=== PATIENT | male | born 1975 | race Caucasian/White ===

== ENCOUNTER 2016-09-19 12:07 | Emergency (ER) | payer OTHER ==
[~2016-09-19] VITALS: Ht 170.2 cm; Wt 77.0 kg
[~2016-09-19 12:07] MED LIST: DEXT15TA PO; LASI20TA PO; MORP1INJ45 PO; OXYC40TA20 PO; POTA-243 PO; TRAZ100T50 PO; XANA2TAB2 PO
[2016-09-19 12:11] VITALS: BP 137/69; PULSE 94; RESP 15; TEMP 98.7; O2SAT 98
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
[2016-09-19] MEDS ORDERED: CYCL5TAB PO (14:12)
[2016-09-19] MEDS ORDERED: IBUP-232 PO (14:12)
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
== END 2016-09-19 14:55 | disposition home or self-care (01) ==
LOC: PHEFT 12:07
DX: S16.1XXA Strain of muscle, fascia and tendon at neck level, initial encounter (principal); S20.219A Contusion of unspecified front wall of thorax, initial encounter; M79.7 Fibromyalgia; F17.210 Nicotine dependence, cigarettes, uncomplicated; V49.49XA Driver injured in collision with other motor vehicles in traffic accident, initial encounter; Y92.410 Unspecified street and highway as the place of occurrence of the external cause
CPT/HCPCS: 71111; 72125; 99284

== ENCOUNTER 2016-11-05 15:02 | Emergency (ER) | payer SELFPAY ==
[~2016-11-05] VITALS: Ht 172.7 cm; Wt 77.0 kg
[~2016-11-05 15:02] MED LIST changes: +CYCL5TAB PO; +IBUP-232 PO
[2016-11-05 15:06] VITALS: BP 136/67; PULSE 114; RESP 16; TEMP 99.1; O2SAT 100
--- NOTE | 2016-11-05 16:08 | PD ---
HPI Chief Complaint: Skin Problem Time Seen by Provider: 15:53 Travel History International Travel<30 days: No Contact w/Intl Traveler<30days: No Traveled to known affect area: No History of Present Illness HPI 41-year-old male with history of IVDU here for evaluation of right forearm abscess/infection. Patient reports that it started about 4 days ago and has progressed in size. He tried sticking a needle in it to drain it, however was only able to obtain blood. He had a fever of 99.6F yesterday evening. He states he is right-handed and does not inject into his right forearm because of this. He is not sure what started the infection. No chest pain or dyspnea. PFSH Past Medical History Arthritis: Yes Asthma: No Autoimmune Disease: No Blood Disorders: No Anxiety: Yes Depression: Yes Heart Rhythm Problems: No Cancer: No Cardiovascular Problems: No High Cholesterol: No Chemotherapy: No Chest Pain: No Congestive Heart Failure: No COPD: No Cerebrovascular Accident: No Diabetes: No Diminished Hearing: No Endocrine: No Fibromyalgia: Yes Gastrointestinal Disorders: Yes (OCCASIONALLY CONSTIPATION) GERD: Yes Glaucoma: No Genitourinary: No Headaches: Yes Hepatitis: No Hiatal Hernia: No Hypertension: No Immune Disorder: No Implanted Vascular Access Dvce: No Kidney Stones: No Musculoskeletal: Yes Neurologic: No Psychiatric: No Respiratory: No Migraines: Yes Myocardial Infarction: No Radiation Therapy: No Renal Failure: No Seizures: No Sickle Cell Disease: No Sleep Apnea: No Thyroid Disease: No Ulcer: No Past Surgical History Abdominal Surgery: No AICD: No Appendectomy: No Arteriovenous Shunt: No Cardiac Surgery: No Cholecystectomy: No Ear Surgery: No Endocrine Surgery: No Eye Surgery: No Genitourinary Surgery: No Gynecologic Surgery: No Insulin Pump: No Joint Replacement: No Neurologic Surgery: No Oral Surgery: No Pacemaker: No Thoracic Surgery: No Other Surgery: Yes (KNEE AND POINTER FINGER) Social History Alcohol Use: Yes ("Rare") Tobacco Use: Yes (1/2-1 PPD) Substance Use: Yes (HEROIN LAST USED 11/03/2016) Allergies-Medications (Allergen,Severity, Reaction): Coded Allergies: Sulfa (Sulfonamide Antibiotics) (Unverified Allergy, Severe, Itching, rash , SOB, 11/05/16) Reported Meds & Prescriptions Reported Meds & Active Scripts Active Ibuprofen 600 Mg Tab 600 Mg PO Q8HR PRN Flexeril (Cyclobenzaprine HCl) 5 Mg Tab 5 Mg PO TID Review of Systems Except as stated in HPI: all other systems reviewed are Neg Physical Exam Narrative GENERAL: Well-developed, well-nourished, comfortable, no apparent distress. SKIN: Focused skin assessment warm/dry. Right mid/anterior forearm with area of fluctuance with surrounding induration with overlying warmth and erythema. No crepitus. No red streaks. This area was evaluated using a bedside ultrasound and shows approximately 1.5 cm x 1.5 cm hypoechoic area indicative of abscess with overlying cobblestoning indicative of cellulitis. There are no spider hemorrhages. No Janeway lesions or Osler nodes. HEAD: Atraumatic. Normocephalic. EYES: Pupils equal and round. No scleral icterus. No injection or drainage. ENT: No nasal bleeding or discharge. Mucous membranes pink and moist. NECK: Trachea midline. No JVD. No nuchal rigidity. CARDIOVASCULAR: Regular rate and rhythm. No murmur appreciated. RESPIRATORY: No accessory muscle use. Clear to auscultation. Breath sounds equal bilaterally. MUSCULOSKELETAL: Skin exam as above. Moderate right forearm swelling with moderate tenderness. No pain with passive flexion and extension of right wrist. No obvious deformities. No clubbing. No cyanosis. No edema. NEUROLOGICAL: Awake and alert. No obvious cranial nerve deficits. Motor grossly within normal limits. Normal speech. PSYCHIATRIC: Appropriate mood and affect; insight and judgment normal. Data Data Last Documented VS Vital Signs Date Time Temp Pulse Resp B/P (MAP) Pulse Ox O2 Delivery O2 Flow Rate FiO2 11/05/16 17:04 17 96 Room Air 11/05/16 15:06 99.1 114 136/67 (90) Orders Orders Lidocaine 1% Inj (50 Ml) (Xylocaine 1% I (11/05/16 16:15) Wound Culture And Gram Stain (11/05/16 16:09) Complete Blood Count With Diff (11/05/16 16:09) Comprehensive Metabolic Panel (11/05/16 16:09) Lactic Acid Sepsis Protocol (11/05/16 16:09) Blood Culture (11/05/16 16:09) Blood Glucose (11/05/16 16:09) Ecg Monitoring (11/05/16 16:09) Iv Access Insert/Monitor (11/05/16 16:09) Oximetry (11/05/16 16:09) Oxygen Administration (11/05/16 16:09) Sodium Chlor 0.9% 1000 Ml Inj (Ns 1000 M (11/05/16 16:09) Sodium Chlor 0.9% 1000 Ml Inj (Ns 1000 M (11/05/16 16:09) Vancomycin Inj (Vancomycin Inj) (11/05/16 16:15) Acetaminophen (Tylenol) (11/05/16 17:00) Labs Laboratory Tests Test 11/05/16 16:50 White Blood Count 12.0 TH/MM3 Red Blood Count 4.97 MIL/MM3 Hemoglobin 13.8 GM/DL Hematocrit 41.4 % Mean Corpuscular Volume 83.2 FL Mean Corpuscular Hemoglobin 27.8 PG Mean Corpuscular Hemoglobin Concent 33.4 % Red Cell Distribution Width 12.6 % Platelet Count 379 TH/MM3 Mean Platelet Volume 7.7 FL Neutrophils (%) (Auto) 73.1 % Lymphocytes (%) (Auto) 19.5 % Monocytes (%) (Auto) 6.4 % Eosinophils (%) (Auto) 0.7 % Basophils (%) (Auto) 0.3 % Neutrophils # (Auto) 8.8 TH/MM3 Lymphocytes # (Auto) 2.3 TH/MM3 Monocytes # (Auto) 0.8 TH/MM3 Eosinophils # (Auto) 0.1 TH/MM3 Basophils # (Auto) 0.0 TH/MM3 CBC Comment DIFF FINAL Differential Comment Blood Urea Nitrogen 11 MG/DL Creatinine 1.10 MG/DL Random Glucose 92 MG/DL Total Protein 9.1 GM/DL Albumin 3.5 GM/DL Calcium Level 9.2 MG/DL Alkaline Phosphatase 110 U/L Aspartate Amino Transf (AST/SGOT) 16 U/L Alanine Aminotransferase (ALT/SGPT) 21 U/L Total Bilirubin 0.7 MG/DL Sodium Level 137 MEQ/L Potassium Level 3.8 MEQ/L Chloride Level 103 MEQ/L Carbon Dioxide Level 26.1 MEQ/L Anion Gap 8 MEQ/L Estimat Glomerular Filtration Rate 74 ML/MIN Lactic Acid Level 1.2 mmol/L MDM Medical Decision Making Medical Screen Exam Complete: Yes Emergency Medical Condition: Yes Differential Diagnosis Right forearm abscess, right forearm cellulitis, necrotizing fasciitis unlikely , compartment syndrome unlikely, sepsis, bacteremia Narrative Course Vital signs show heart rate 114, blood pressure 136/67, pulse ox 100% on room air, oral temp of 99.1F. Right forearm abscess drained by my PA. See her note for further details. Heart rate improved to 84 after 2 L normal saline IV and oral Tylenol. CBC shows WBC 12, hemoglobin 13.8, hematocrit 41.4, platelets 379, neutrophils 73%. CMP is unremarkable. Lactic acid is 1.2. Patient made aware of all findings. He is resting comfortably. He prefers to be discharged home. There are no physical exam findings to suggest bacteremia or endocarditis. He will be discharged home with a prescription for Keflex. He was given a dose of 1 g of vancomycin IV here. PMD follow-up this week. He was informed on when to return to the emergency department. He verbalizes understanding and agreement with plan. Procedures Procedure Narrative Ultrasound-guided peripheral IV: Because of difficult IV access, was asked by my nurse to place an ultrasound- guided peripheral IV. Using the linear ultrasound probe for guidance, a 20- gauge IV catheter was placed in the left arm. Site prepped with ChloraPrep prior to insertion. Tolerated well. No complications. Diagnosis Primary Impression: Abscess of right forearm Additional Impression: Right forearm cellulitis Referrals: Primary Care Physician 3 days Additional Instructions: Take antibiotics as prescribed. Follow-up with a primary care physician this week. Return to the emergency department for worsening symptoms or any other concerns. Scripts Cephalexin (Keflex) 500 Mg Cap 500 MG PO Q8H for Infection, #30 CAP 0 Refills Prov: Blu Gomez MD 11/05/16 Disposition: 01 DISCHARGE HOME Condition: Stable Blu Gomez MD Nov 05, 2016 16:08
[2016-11-05] MEDS ORDERED: SODIUM CHLOR 0.9% 1000 ML INJ 1,000 ML IV ONE (16:09)
[2016-11-05] MEDS ORDERED: SODIUM CHLOR 0.9% 1000 ML INJ 800 ML IV ONE (16:09)
[2016-11-05] MEDS ORDERED: LIDOCAINE HCL 1% 50 ML VIAL INFIL ONE (16:15)
[2016-11-05] MEDS ORDERED: VANCOMYCIN INJ 1,000 MG in SODIUM CHLOR 0.9% 250 ML INJ 250 ML IV ONE (16:15)
--- NOTE | 2016-11-05 16:23 | PD ---
Physical Exam Time Seen by Provider: 16:22 Narrative I was asked by Dr. Gomez to perform an incision and drainage on this patient. Please see his note for further details. Data Data Last Documented VS Vital Signs Date Time Temp Pulse Resp B/P (MAP) Pulse Ox O2 Delivery O2 Flow Rate FiO2 11/05/16 15:06 99.1 114 16 136/67 (90) 100 Orders Orders Lidocaine 1% Inj (50 Ml) (Xylocaine 1% I (11/05/16 16:15) Wound Culture And Gram Stain (11/05/16 16:09) Complete Blood Count With Diff (11/05/16 16:09) Comprehensive Metabolic Panel (11/05/16 16:09) Lactic Acid Sepsis Protocol (11/05/16 16:09) Blood Culture (11/05/16 16:09) Blood Glucose (11/05/16 16:09) Ecg Monitoring (11/05/16 16:09) Iv Access Insert/Monitor (11/05/16 16:09) Oximetry (11/05/16 16:09) Oxygen Administration (11/05/16 16:09) Sodium Chlor 0.9% 1000 Ml Inj (Ns 1000 M (11/05/16 16:09) Sodium Chlor 0.9% 1000 Ml Inj (Ns 1000 M (11/05/16 16:09) Vancomycin Inj (Vancomycin Inj) (11/05/16 16:15) MDM Medical Record Reviewed: Yes Supervised Visit with ART: Yes Procedures Procedure Narrative INCISION AND DRAINAGE OF ABSCESS: The area was prepped and was sterilely draped. A subcutaneous wheal of 1% lidocaine with a total number 3 mL was used to anesthetize the area properly. A number 11 scalpel was used to make a 1 cm incision across the area of the abscess. The abscess was drained, complex loculations were broken down, and irrigated with normal saline. Cultures were obtained. Sterile dressing applied. Iram Lowe Nov 05, 2016 16:23
[2016-11-05] MEDS ORDERED: ACETAMINOPHEN 325 MG TAB PO ONE (17:00)
[2016-11-05 17:04] VITALS: RESP 17; O2SAT 96
[2016-11-05 17:14] LABS: AUTOMATED NEUTROPHIL # 8.8 TH/MM3 (1.8-7.7); BASOPHIL % 0.3 % (0.0-2.0); EOSINOPHIL # 0.1 TH/MM3 (0-0.4); EOSINOPHIL % 0.7 % (0.0-4.0); HEMATOCRIT 41.4 % (39.0-51.0); HEMO FLAGS DIFF FINAL; LYMPH % 19.5 % (9.0-44.0); LYMPHOCYTE # 2.3 TH/MM3 (1.0-4.8); MEAN CELL VOLUME 83.2 FL (80.0-100.0); MEAN CORPUSCULAR HEMOGLOBIN 27.8 PG (27.0-34.0); MEAN CORPUSCULAR HGB CONC 33.4 % (32.0-36.0); MONO % 6.4 % (0.0-8.0); NEUT % 73.1 % (16.0-70.0); PLATELET COUNT 379 TH/MM3 (150-450); RED BLOOD COUNT 4.97 MIL/MM3 (4.50-5.90); RED CELL DISTRIBUTION WIDTH 12.6 % (11.6-17.2)
[2016-11-05 17:22] LABS: CHLORIDE 103 MEQ/L (98-107); POTASSIUM 3.8 MEQ/L (3.5-5.1); SODIUM (NA) 137 MEQ/L (136-145)
[2016-11-05 17:26] LABS: ANION GAP 8 MEQ/L (5-15); BICARBONATE 26.1 MEQ/L (21.0-32.0); BLOOD UREA NITROGEN 11 MG/DL (7-18)
[2016-11-05 17:29] LABS: ALT (GPT) 21 U/L (12-78); AST (GOT) 16 U/L (15-37); GLOMERULAR FILTRATION RATE 74 ML/MIN (>89)
[2016-11-05 17:31] LABS: TOTAL BILIRUBIN ADULT 0.7 MG/DL (0.2-1.0)
[2016-11-05 17:32] LABS: ALKALINE PHOSPHATASE 110 U/L (45-117)
[2016-11-05] MEDS ORDERED: CEPH-460 PO (17:53)
[2016-11-05 17:57] VITALS: BP 138/76; PULSE 89; RESP 18; O2SAT 100
== END 2016-11-05 18:16 | disposition home or self-care (01) ==
LOC: PHED 15:02
DX: L02.413 Cutaneous abscess of right upper limb (principal); L03.113 Cellulitis of right upper limb; F17.210 Nicotine dependence, cigarettes, uncomplicated; M19.90 Unspecified osteoarthritis, unspecified site; M79.7 Fibromyalgia; K21.9 Gastro-esophageal reflux disease without esophagitis
CPT/HCPCS: 10060; 80053; 83605; 85025; 87040; 87070; 96374; 99285; J3370; J7030; J7050; 87205